=== PATIENT | female | born 1970 | race African-American/Black ===

== ENCOUNTER 2018-08-20 13:08 | Outpatient (CLI) | payer OTHER ==
--- NOTE | 2018-08-20 15:03 | MMO ---
BILATERAL SCREENING MAMMOGRAM: Date: 08/20/18 COMPARISON: 12/07/15. HISTORY: Screening mammography. FINDINGS: This patient's mammogram was interpreted with the assistance of computer-aided detection. Scattered fibroglandular densities are present. Benign-appearing microcalcification noted bilaterally. No dominant mass or architectural distortion. No concerning microcalcification. IMPRESSION: BIRADS 2: Benign Finding(s) Annual screening mammography recommended. POS: [facility]
== END 2018-08-20 13:09 | disposition home or self-care (01) ==
LOC: SCSMAMMO 13:08
PROVIDERS: ATTEND Family Medicine
DX: Z12.31 Encounter for screening mammogram for malignant neoplasm of breast (principal)
CPT/HCPCS: 77067

== ENCOUNTER 2020-05-19 12:59 | Outpatient (CLI) | payer OTHER ==
--- NOTE | 2020-05-19 14:44 | CT ---
CT ABDOMEN AND PELVIS WITH AND WITHOUT IV CONTRAST 05/19/2020 CLINICAL INFORMATION: Microhematuria for 2 months. COMPARISON: None. Technique: Multiple contiguous axial CT images are obtained through the abdomen and pelvis with IV contrast. Cor onal reformatted images are provided. FINDINGS: Lower Chest: Atelectasis in the right middle lobe and lingula. Vessels: Abdominal aorta is normal in caliber. Abdomen: Portal vein:Patent Gallbladder: Within normal limits for CT imaging. Liver: within normal limits. Spleen: within normal limits. Pancreas: within normal limits. Adrenals: within normal limits. Kidneys: No renal or ureteral calculi are seen bilaterally, and there is no hydronephrosis. No enhanc ing renal mass is seen. Bowel: Normal caliber. Is suggested Appendix: The appendix is visualized and normal in caliber. Peritoneum: No ascites or free air; no fluid collection. Mesentery and Retroperitoneum: No enlarged mesenteric or retroperitoneal lymph nodes. Abdominal Wall: within normal limits. Pelvis: Reproductive Organs: There is diminished attenuation within the endometrial canal. This is overall no nspecific. Pelvic ultrasound is suggested for further evaluation. Bladder: within normal limits. Bones: Degenerative changes lumbar spine. IMPRESSION: 1. Low-density area within the region of the endometrial canal. This overall nonspecific. This could potentially represent small amount of fluid. Pelvic ultrasound is suggested for further evaluation. 2. No renal or ureteral calculi are seen bilaterally, and there is no hydronephrosis.
== END 2020-05-19 13:00 | disposition home or self-care (01) ==
LOC: SCSCT 12:59
PROVIDERS: ATTEND Urology
DX: R31.29 Other microscopic hematuria (principal); R39.89 Other symptoms and signs involving the genitourinary system
CPT/HCPCS: 74178